=== PATIENT | male | born 1955 | race African-American/Black ===

== ENCOUNTER 2021-03-10 21:02 | Emergency (ER) | payer MEDICAID ==
[~2021-03-10] VITALS: Ht 182.9 cm; Wt 70.0 kg
[2021-03-10 21:24] VITALS: BP 157/70
[2021-03-10] MEDS ORDERED: TETRACAINE 0.5% OPHTH DROPS 4ML RIGHTEYE ONE (22:00)
[2021-03-10] MEDS ORDERED: FLUORESCEIN SODIUM 1MG/STRIP EACHEYE ONE (22:00)
== END 2021-03-10 22:15 | disposition home or self-care (01) ==
LOC: ER 21:02
DX: T15.91XA Foreign body on external eye, part unspecified, right eye, initial encounter (principal); X58.XXXA Exposure to other specified factors, initial encounter; Y93.89 Activity, other specified; Y92.89 Other specified places as the place of occurrence of the external cause; Y99.8 Other external cause status
CPT/HCPCS: 99283